=== PATIENT | female | born 1955 | race Caucasian/White ===

== ENCOUNTER → 2019-12-15 | Outpatient (CLI) | payer BC | LOC: LAB FS 10:30 | PROVIDERS: ATTEND Student in an Organized Health Care Education/Training Program | DX: Z11.59 Encounter for screening for other viral diseases (principal) | CPT/HCPCS: 87635 ==

== ENCOUNTER → 2022-11-23 | Outpatient (CLI) | payer OTHER | LOC: CARD 11:44 | PROVIDERS: ATTEND Internal Medicine Cardiovascular Disease | DX: I35.0 Nonrheumatic aortic (valve) stenosis (principal) | CPT/HCPCS: 93306 ==

== ENCOUNTER → 2023-01-20 | Outpatient (CLI) | payer MEDICAID, MEDICARE, OTHER ==
[~2023-01-20] MED LIST: CATHETER FLUSH 10 ML SYR IVP PRN
[2023-01-20 09:15] VITALS: BP 196/81
--- NOTE | 2023-01-21 07:53 | Cardiology Stress Test Report ---
Stress Test Report Date of Procedure/Referring: Date of Procedure: Jan 20, 2023 PCP Lisa Sanches Aprn Admitting Physician Admitting Physician: Attending Physician: Bonifacio Quinones MD Baseline Heart Rate: 77 Baseline Blood Pressure: Blood Pressure Systolic: 196 Blood Pressure Diastolic: 81 Vital Signs Date Time Temp Pulse Resp B/P (MAP) Pulse Ox O2 Delivery O2 Flow Rate FiO2 01/20/23 09:15 82 196/81 (119) Baseline Vital Signs Vital Signs Date Time Temp Pulse Resp B/P (MAP) Pulse Ox O2 Delivery O2 Flow Rate FiO2 01/20/23 09:15 82 196/81 (119) Baseline EKG: Baseline EKG: NSR Summary: After explaining the procedure and details to the patient, she signed the consent and was brought to the stress nuclear laboratory. Patient exercised on standard Juan protocol, EKG, heart rate and blood pressure were monitored continuously, resting and stress doses of radio tracer were injected, imaging was acquired and reviewed in the short axis, horizontal long axis and vertical long axis views Patient was able to exercise for a total of 2.30 minutes on Juan protocol, METs 4 Maximum heart rate 150 Maximum blood pressure 248/111 Stress EKG, Minimal nondiagnostic changes Recovery EKG, Return to baseline TID: 1.17 SSS: 2 SDS: 2 EF: 63 Conclusion: Poor exercise tolerance for 2 minutes and 30 seconds on standard Juan protocol, 4 METS achieving 97% of maximal expected heart rate Appropriate heart rate response to exercise with hypertensive response to exercise with peak blood pressure 248/111 return to baseline during recovery Nondiagnostic EKG changes with exercise return to baseline during recovery Breast attenuation with mild decrease uptake in the mid to apical anterior wall with mild reversibility, overall there is no significant ischemia or infarction on SPECT images Normal left ventricular size, ejection fraction 63% BONIFACIO QUINONES MD Jan 21, 2023 07:52
== END ==
LOC: CARD 07:58
PROVIDERS: ATTEND Internal Medicine Cardiovascular Disease
DX: N64.89 Other specified disorders of breast (principal); I35.0 Nonrheumatic aortic (valve) stenosis
CPT/HCPCS: 78452; 93017; A9502